=== PATIENT | male | born 1940 | race Two or more races ===

== ENCOUNTER 2019-09-26 14:04 | Outpatient (CLI) | payer MEDICARE, MEDICAID ==
[2019-09-26 14:30] VITALS: BP 135/75
[2019-09-26] MEDS ORDERED: NORCO 10-325 T1 EACH ORAL (14:32)
--- NOTE | 2019-09-26 18:00 | Consultation ---
DATE OF CONSULTATION: 09/26/2019 CHIEF COMPLAINT: 1. Multiple colonic polyps. 2. History of gastric HISTORY OF PRESENT ILLNESS: The patient is a very pleasant 78-year-old [place] male, had endoscopy and colonoscopy by Dr. Mejia in July 2019, which showed multiple polyps. The patient also had H. pylori positive gastritis and gastric ulceration. Apparently all of colon polyps were removed. The patient was recommended to follow up in office for repeat colonoscopy and endoscopy and removal of the rest of the colonic polyps. PAST MEDICAL HISTORY: 1. Multiple colonic polyps. 2. H. pylori positive gastric ulcer. 3. BPH. PAST SURGICAL HISTORY: History of eye surgery. MEDICATIONS: Please see medication reconciliation list. FAMILY HISTORY: Noncontributory. SOCIAL HISTORY: The patient drinks socially. Denies any tobacco or IV drug abuse. ALLERGIES: No known allergies. REVIEW OF SYSTEMS: Positive for minimum bilateral lower quadrant abdominal pain. PHYSICAL EXAMINATION: VITAL SIGNS: Temperature 98, blood pressure 135/75, pulse 80, respirations 20. HEENT: Normocephalic and atraumatic. Sclerae anicteric. NECK: Supple. No evidence of obvious lymphadenopathy. CARDIOVASCULAR: Regular rate and rhythm. Plus S1 and S2. LUNGS: Decreased breath sounds bilaterally based on the supine exam. ABDOMEN: Soft, nontender. No rebound. No guarding. No peritoneal sign. EXTREMITIES: No cyanosis. No clubbing. No edema ASSESSMENT AND PLAN: The patient is a 78-year-old male with multiple colonic polyps referred by another GI for repeat colonoscopy and also had H. pylori positive gastric ulceration, needs repeat evaluation. Make sure the ulcer is healed. The patient needs another endoscopy and colonoscopy. The risks and benefits of procedure were explained to the patient. The prep was given to the patient. The patient is scheduled for end of September for colonoscopy and endoscopy. I want to thank, Dr. Mejia, for this kind referral. Marvin Felix M.D. DR: Berta JOB#: [id number] CC: Dr. Mejia
== END 2019-09-26 16:19 | disposition home or self-care (01) ==
LOC: PAN 14:04
DX: R10.30 Lower abdominal pain, unspecified (principal); Z86.010 Personal history of colon polyps; K29.70 Gastritis, unspecified, without bleeding; B96.81 Helicobacter pylori [H. pylori] as the cause of diseases classified elsewhere
CPT/HCPCS: G0463

== ENCOUNTER 2019-10-14 09:00 | Day surgery (SDC) | payer MEDICARE, MEDICAID ==
[~2019-10-14] VITALS: Ht 182.9 cm; Wt 88.5 kg
[2019-10-14] VITALS (10 sets, daily range): BP systolic 136–160; BP diastolic 78–100
[~2019-10-14 09:00] MED LIST: NORCO 10-325 T1 EACH ORAL
[2019-10-14] MEDS ORDERED: LR 1000ml 1,000 ML IVLG SCH ×2 (09:20→11:28)
[2019-10-14] MEDS ORDERED: fentaNYL 100 mcg/2 mL IV ONE (10:43)
--- NOTE | 2019-10-14 10:53 | Pre-Procedure Note/Attestation ---
Pre-Procedure Note/Attestation Complete Prior to Procedure Planned Procedure: not applicable Procedure Narrative: esophagogastroduodenoscopy and colonoscopy Indications for Procedure Pre-Operative Diagnosis: abd pain GERD Attestation I attest that I discussed the nature of the procedure; its benefits; risks and complications; and alternatives (and the risks and benefits of such alternatives ), prior to the procedure, with the patient (or the patient's legal counter sales representative). I attest that, if there was a reasonable possibility of needing a blood transfusion, the patient (or the patient's legal counter sales representative) was given the [facility] standardized written summary, pursuant to the Dex Marty Blood Safety Act ([place] Health and Safety Code # 1645, as amended). I attest that I re-evaluated the patient just prior to the surgery and that there has been no change in the patient's H&P, except as documented below: Marvin Felix MD Oct 14, 2019 10:53
--- NOTE | 2019-10-14 10:54 | Short Stay Surgery H&P ---
History of Present Illness History of Present Illness Chief Complaint see recent office note HPI Moira Gatica is a 78 year old male who was admitted on for Gerd And Screening Patient History Allergies: Coded Allergies: No Known Allergies (Verified Allergy, Mild, 03/28/07) Medication History Scheduled PRN Hydrocodone Bit/Acetaminophen 10-325* ([place] 10-325*), TAB ORAL Q6H PRN for For Pain, (Reported) Hydrocodone Bit/Acetaminophen 10-325* ([place] 10-325*), 1 TAB ORAL Q6H PRN for For Pain, (Reported) Physical Exam Vital Signs Last Vital Signs Date Time Temp Pulse Resp B/P (MAP) Pulse Ox O2 Delivery O2 Flow Rate FiO2 10/14/19 10:18 Room Air 10/14/19 09:31 97.9 75 18 146/100 98 Plan Attestation Are the patient's medical conditions optimized for surgery? Marvin Felix MD Oct 14, 2019 10:54
[2019-10-14] MEDS ORDERED: Propofol 200mg/20ml IV ONE (11:00)
[2019-10-14] MEDS ORDERED: LR 1000ml ONE (11:00)
--- NOTE | 2019-10-14 11:28 | Anethesia Preoperative Eval ---
Anesthesia Pre-op PMH/ROS General Date of Evaluation: Oct 14, 2019 Time of Evaluation: 10:52 Anesthesiologist: Amalia ASA Score: ASA 2 Mallampati Score Class I : Soft palate, uvula, fauces, pillars visible Class II: Soft palate, uvula, fauces visible Class III: Soft palate, base of uvula visible Class IV: Only hard plate visible Mallampati Classification: Class II Surgeon: Elvira Diagnosis: Abdominal pain Surgical Procedure: EGD Colonoscopy Anesthesia History: none Allergies: Coded Allergies: No Known Allergies (Verified Allergy, Mild, 03/28/07) Medications: see eMAR Patient NPO?: Yes Past Medical History Cardiovascular: Reports: HTN - borderline; Denies: CAD, [place], valve dz, arrhythmia, other Pulmonary: Denies: asthma, COPD, ALBERTA, other Gastrointestinal/Genitourinary: Reports: GERD; Denies: CRI, ESRD, other Neurologic/Psychiatric: Reports: other - chrronic pain; Denies: dementia, CVA, depression/anxiety, TIA Endocrine: Denies: DM, hypothyroidism, steroids, other HEENT: Reports: cataract (L), cataract (R); Denies: glaucoma, PLATINUM (L), PLATINUM (R), other Musculoskeletal/Integumentary: Denies: OA, RA, DJD, DDD, edema, other PMH Narrative: as above PSxH Narrative: see chart Anesthesia Pre-op Phys. Exam Physician Exam Last Vital Signs Date Time Temp Pulse Resp B/P (MAP) Pulse Ox O2 Delivery O2 Flow Rate FiO2 10/14/19 10:18 Room Air 10/14/19 09:31 97.9 75 18 146/100 98 Constitutional: NAD Neurologic: CN 2-12 intact Cardiovascular: RRR, no M/R/G Respiratory: CTA Gastrointestinal: S/NT/ND Airway Exam Mallampati Score: Class II MO: limited Neck: stiff ROM: limited Teeth: missing Dentures: no upper, no lower Anesthesia Pre-op A/P Studies Pre-op Studies: EKG - nsr Risk Assessment & Plan Assessment: ASA 2 Plan: MAC Status Change Before Surgery: No Pre-Antibiotics Drug: none Adilson Holland MD Oct 14, 2019 11:28
[2019-10-14] MEDS ORDERED: fentaNYL 100 mcg/2 mL IV PRN (11:30)
--- NOTE | 2019-10-14 11:35 | Endoscopy Procedure Note ---
Endoscopy Procedure Note General Indication for Procedure: screening colon,G ERD Procedures Performed: EGD, colonoscopy Operative Findings/Diagnosis: gastritis, colon polyps Specimen: yes Pt Tolerated Procedure Well: Yes Estimated Blood Loss: none Anesthesia Anesthesiologist: kary Anesthesia: MAC Inserted Devices Implant(s) used?: No Quality Quality of Bowel Preparation: Good Did scope reach the cecum?: Yes Was there any complications?: No GI Core Measures 50 yrs or older w/o bx or poly: No 10yrs. F/U recommended: Yes If not recommended, why?: Above average risk 18 years or older w/prev. colo: No Marvin Felix MD Oct 14, 2019 11:35
--- NOTE | 2019-10-14 11:44 | Immediate Post-Op Evaluation ---
Immediate Post-Op Evalulation Immediate Post-Op Evalulation Procedure: EGD Colonoscopy polypectomy Date of Evaluation: Oct 14, 2019 Time of Evaluation: 11:43 IV Fluids: 800 Blood Products: none Estimated Blood Loss: none Urinary Output: none Blood Pressure Systolic: 136 Blood Pressure Diastolic: 82 Pulse Rate: 76 Respiratory Rate: 20 O2 Sat by Pulse Oximetry: 98 Temperature (Fahrenheit): 97.6 Pain Score (1-10): 1 Nausea: No Vomiting: No Complications none Patient Status: awake, patent, none Hydration Status: adequate Adilson Holland MD Oct 14, 2019 11:44
--- NOTE | 2019-10-14 12:40 | NUR ---
NURSE NOTES: Dr. Cynthia Felix spoke with and assessed patient at bedside upon arrival in the outpatient surgical department discharge area. Patient states that abdominal pain is subsiding and that he is comfortable at this time. Dr. Cynthia Felix reiterated at home care instructions to the patient and patient verbalized understanding. No new orders received from Dr. Cynthia Felix at this time. Patient is observed to be in no acute distress and vital signs are stable. Bedside RN will reiterate home instructions to the son, Kev, upon his arrival when picking up the patient.
--- NOTE | 2019-10-14 16:00 | Procedure Note ---
DATE OF PROCEDURE: 10/14/2019 SURGEON: Marvin Felix M.D. ANESTHESIOLOGIST: Adilson Holland M.D. PROCEDURE: Upper endoscopy with biopsy and colonoscopy with snare polypectomy and biopsy. ANESTHESIA: Per Dr. Holland. INSTRUMENT: Olympus adult flexible upper endoscope and colonoscope. INDICATIONS: Screening colonoscopy evaluation, abdominal pain, chronic GERD. The procedure, risks, benefits, and possible consequences, including hemorrhage, aspiration, perforation and infection, and alternative treatments, were explained to the patient/legal guardian by Dr. Marvin Felix and the patient/legal guardian understood and accepted these risks. DESCRIPTION OF PROCEDURE: After informed consent was obtained and the patient was adequately sedated, Olympus upper endoscope was advanced from the mouth into the second portion of the duodenum and retroflexion was performed in the stomach. The patient had multiple unusual-looking polyps in the pylorus of the stomach. These polyps have whitish tinge on the surface. Biopsy from the largest one, which measured roughly about 1 cm, was obtained for diagnosis. The patient also had evidence of diffuse gastritis. Random biopsy from antrum was obtained to rule out H. pylori infection. The patient had also evidence of 5 cm hiatal hernia with irregular Z-line, most probably secondary to hiatal hernia. At this time, the upper endoscope was retrieved. The patient was turned over for colonoscopy. First, rectal exam was performed, which was positive for internal hemorrhoids. Then, the scope was advanced from the rectum into the cecum documented by appendix orifice, ileocecal valve, and right upper quadrant palpation. Quality of prep was very good. The patient had a total of 5 polyps in the transverse colon. The largest one measured roughly 8 mm, pedunculated, removed with hot snare polypectomy technique. The other 3 more polyps were removed with hot snare polypectomy technique and one with cold biopsy forceps technique. The rest of the examination grossly looked within normal limits. Retroflexion of rectum showed evidence of internal hemorrhoids. SUMMARY OF FINDINGS: 1. Multiple gastric polyps, unusual looking, with whitish tinge on the surface, one of them was biopsied for diagnosis. 2. Gastritis, status post biopsy. 3. A 5 cm hiatal hernia with associated distal esophageal irregular Z-line. 4. Five colonic polyps removed. See above for details. 5. Internal hemorrhoids. RECOMMENDATIONS: Follow up biopsy results and treat accordingly. The patient will need a repeat colonoscopy in three years given 5 polyps. Marvin Felix M.D. DR: Fatou JOB#: [id number] CC:
== END 2019-10-14 13:15 | disposition home or self-care (01) ==
LOC: GAS 09:00
DX: Z12.11 Encounter for screening for malignant neoplasm of colon (principal); R10.9 Unspecified abdominal pain; K21.9 Gastro-esophageal reflux disease without esophagitis; K31.7 Polyp of stomach and duodenum; K44.9 Diaphragmatic hernia without obstruction or gangrene; K63.5 Polyp of colon; K64.8 Other hemorrhoids; K29.50 Unspecified chronic gastritis without bleeding; D12.3 Benign neoplasm of transverse colon
CPT/HCPCS: 43239; 45380; 45385; J2704; J3010; J7120; 94003; 94150